=== PATIENT | female | born 1970 | race Caucasian/White ===

== ENCOUNTER 2018-11-30 08:23 | Inpatient (IN) | payer BC, OTHER ==
[2018-11-29 11:23] VITALS: BMI 23.0
[2018-11-30 11:13] LABS: PH,URINE 5.5 (5.0-8.0); URINE APPEARANCE CLEAR; URINE BILIRUBIN NEGATIVE (NEGATIVE); URINE COLOR DK YELLOW; URINE GLUCOSE (UA) TRACE (NEGATIVE); URINE KETONE TRACE (NEGATIVE); URINE LEUK ESTERASE NEGATIVE (NEGATIVE); URINE NITRITE NEGATIVE (NEGATIVE); URINE PROTEIN TRACE (NEGATIVE)
[2018-11-30] MEDS ORDERED: MIDAZOLAM HCL 2 MG/2 ML SINGLE DOSE VIAL ONE (11:18)
[2018-11-30] MEDS ORDERED: PROPOFOL 20 ML ONE (11:18)
[2018-11-30] MEDS ORDERED: fentaNYL CITRATE 250 MCG/5 ML VIAL ONE (11:18)
[2018-11-30] MEDS ORDERED: ROCURONIUM BROMIDE 50 MG/5 ML SYRINGE ONE ×2 (11:18→12:53)
[2018-11-30] MEDS ORDERED: LIDOCAINE HCL/PF 2% SDV 5ML VIAL ONE (11:20)
[2018-11-30] MEDS ORDERED: ceFAZolin SODIUM 1 GM VIAL IVPB ONE (11:36)
[2018-11-30] MEDS ORDERED: ESMOLOL HCL 100,000 MCG/10 ML VIAL ONE (12:29)
[2018-11-30] MEDS ORDERED: HYDROmorphone HCl 2 MG/ML VIAL ONE (13:23)
--- NOTE | 2018-11-30 13:38 | HP ---
History & Physical Update - History History: No Change - Physical Physical: No Change - Assessment Assessment: No Change - Plan Plan: No Change
[2018-11-30] MEDS ORDERED: morphine SULFATE/PF 30 MG/30 ML *PCA* DISP.SYRIN PCA SCH (13:45)
[2018-11-30] MEDS ORDERED: DEXAMETHASONE SOD PHOSPHATE 4 MG/1 ML VIAL ONE (14:29)
[2018-11-30] MEDS ORDERED: GLYCOPYRROLATE 0.2 MG/1 ML VIAL ONE (14:42)
[2018-11-30] MEDS ORDERED: NEOSTIGMINE METHYLSULFATE 0.5 MG/ML - 10 ML MDV ONE (14:42)
[2018-11-30] MEDS ORDERED: ONDANSETRON 4 MG/2 ML VIAL IVPUSH PRN (15:25)
[2018-11-30] MEDS ORDERED: HYDROmorphone *PCA* 10MG/50ML DISP.SYRIN PCA SCH (16:00)
--- NOTE | 2018-11-30 16:01 | OP ---
Operative Note - Note: Operative Date: 11/30/18 Pre-Operative Diagnosis: chest wall deformity after bilateral mastectomy for breast cancer Operation: Bilateral breast reconstruction with alloderm and expanders Post-Operative Diagnosis: Same as Pre-op Surgeon: Doni Camilo Drivability Technician: Donna Dhaliwal Anesthesiologist/PUBLIC SPEAKING COACH: Paxton Casillas Anesthesia: General Estimated Blood Loss (mls): 100 Drains & Tubes with Location: ANDRE x2 right chest wall. JPx2 left chest wall Fluid Volume Replaced (mls): 2,000 Operative Report Dictated: Yes
--- NOTE | 2018-11-30 16:02 | SURG ---
Surgery Converter Operator Note Converter Operator: Donna Dhaliwal PA-C Date of Service: 11/30/18 Diagnosis: chest wall deformity s/p bilateral mastectomy for breast cancer. Procedure: Bilateral breast reconstruction s/p mastectomy with tissue expanders and alloderm I was present for the entirety of the operative procedure. For further detail, please refer to operative report. Visit type - Case Type Case Type: Scheduled - Emergency Emergency Visit: No - New patient This patient is new to me today: Yes Date on this admission: 11/30/18
--- NOTE | 2018-11-30 16:04 | OP ---
Operative Note - Note: Operative Date: 11/30/18 Pre-Operative Diagnosis: Right Breast Cancer Operation: Bilateral Immediate Breast Reconstruction, Bilateral Insertion of Tissue Expanders, Bilateral Insertion of Perforated Alloderm Sheets Implants: Dayhoit CPX-4 Medium Height Tissue Expanders 450cc Post-Operative Diagnosis: Same as Pre-op Surgeon: Doni Camilo Seismic Prospecting Supervisor: Donna Dhaliwal Anesthesia: General Operative Report Dictated: Yes
[2018-11-30] MEDS ORDERED: SODIUM CHLORIDE 1,000 ML IV SCH (16:15)
[2018-11-30] MEDS ORDERED: ACETAMINOPHEN INJECTION 100 ML IVPB ONE (17:33)
[2018-11-30] MEDS: ACETAMINOPHEN 500 MG TABLET (FP) PO PRN (17:37)
[2018-11-30] MEDS ORDERED: ceFAZolin SODIUM 1 GM VIAL ONE (17:39)
[2018-11-30] MEDS: CEFAZOLIN 1 GM/D5W 1 GM/50 ML BAG IVPB SCH ×3 (17:51→18:00)
--- NOTE | 2018-11-30 20:32 | OP ---
DATE OF OPERATION: 11/30/2018 PREOPERATIVE DIAGNOSIS: Right breast cancer. POSTOPERATIVE DIAGNOSIS: Right breast cancer. PROCEDURE: Bilateral mastectomy and right sentinel node biopsy. SURGEON: Lorelei Ruffin MD COOK APPRENTICE: Doni Camilo MD ANESTHESIA: General. ESTIMATED BLOOD LOSS: 200 mL. DRAINS: None. COMPLICATIONS: None. This is a sterile procedure. INDICATION FOR PROCEDURE: The patient presented with an abnormal screening mammogram and ultrasound that noted multiple nodules in the upper outer right breast as well as 1 close to the nipple in the 11 o'clock areolar border. I did a needle biopsy of 2 of these, and this came back as invasive carcinoma. Clinically, she also had bloody nipple discharge from the right breast. My recommendation was mastectomy given these are 2 at least multifocal with possibly involvement of the nipple given the bloody nipple discharge. Therefore, she opted for a left prophylactic mastectomy, and she met with plastic surgery to discuss reconstructive options. PROCEDURE IN DETAIL: Patient was brought to [facility] in [place]. Taken down to nuclear medicine where I injected technetium sulfur colloid as an intradermal injection in the right breast 11 o'clock areolar border. She was then brought up to the operating room, and after induction of general anesthesia and IV antibiotics, 5 mL of Methylene blue dye diluted with 5 mL of injectable saline, I injected 5 mL of this in the right subareolar plexus, and the breast was massaged for 5 minutes. Both breast and right axilla then prepped and draped in the usual sterile fashion. Ellipse of skin was taken to include the nipple areolar complex, and superior, inferior, medial, lateral flaps were raised, and then I 1st got into the right axilla to the claviopectoral fascia. Identified 3 sentinel lymph nodes. The 1st one was blue and hot. The 2nd one was hot but not blue. The 3rd one, which is actually more on the tail of the breast, was the hottest lymph node and blue. These were sent to Pathology for permanent section. There was no other blue dye radioactivity, pathologic feeling lymph node in the right axilla. Therefore, next, a right mastectomy was completed. Again, once superior, inferior, medial, lateral flaps were raised, the breast was reflected off the pectoralis muscle and tagged with a stitch at the lateral edge and sent for permanent section to pathology. Next, gown, gloves, and instruments were changed, and the left mastectomy was performed, and the incisions were made to include the nipple areolar complex, and superior, inferior, medial, lateral flaps were raised, and the breast was reflected off the pectoralis muscle. This was tagged with a stitch at the lateral edge and sent as a left mastectomy with stitch at lateral edge. Hemostasis was assured with electrocautery. The patient was then left with Dr. Camilo to finish the reconstructive part of the procedure. LORELEI RUFFIN M.D. [id number]
[2018-11-30] MEDS: LACTATED RINGERS SOLUTION 1,000 ML IV SCH (21:10)
--- NOTE | 2018-11-30 21:20 | OP ---
DATE OF OPERATION: 11/30/2018 AGE: 47. SEX: Female. PREOPERATIVE DIAGNOSIS: Right breast cancer. POSTOPERATIVE DIAGNOSIS: Right breast cancer. PROCEDURE PERFORMED: Bilateral immediate breast reconstruction, bilateral insertion of tissue expanders, and bilateral insertion of perforated AlloDerm sheets. SURGEON: Doni Joel MD MAP CLERK: SHERRIE Caballero ANESTHESIA: General. DESCRIPTION OF PROCEDURE: The patient is on the operating table at the completion of bilateral modified radial mastectomies by Dr. Reaves. This was performed in addition to a sentinel node biopsy in the right axilla. The right breast was addressed first. The pectoralis major muscle was identified, and the subpectoral plane was dissected and developed. The inferomedial attachments of the pectoralis major muscle were divided, and the dissection was continued superiorly to the level of the second rib. The tissue french folding machine operator selected was a [place] CPX 4 medium-height, 450-mL tissue french folding machine operator. Prior to insertion, a sheet of medium-thickness perforated AlloDerm was brought onto the field and soaked in normal saline. The AlloDerm was sutured to the inferior edge of the pectoralis major muscle using a 2-0 Vicryl suture in interrupted horizontal mattress fashion, burying the knots under the muscle. The tissue french folding machine operator was brought onto the field, and all air was removed using the provided butterfly needle. Next, 40 mL of saline were instilled into the tissue french folding machine operator to facilitate removing all of the air. The french folding machine operator was then inserted without difficulty and aligned properly. The inferior-most suture tab was used to fix its position using a single Vicryl suture. The AlloDerm was then reflected over the lower pole of the implant and sutured using 2-0 Vicryl suture in interrupted buried fashion at the level of the inframammary fold. Two number 15-Citizen [place] Joel-Hart drains were inserted through separate stab incisions in the anterior axillary line, one directed towards the axilla and one directed inferiorly. Closure was then begun. Closure was performed in layered fashion. Deep tissues were closed with number 3-0 Biosyn suture in interrupted buried fashion, and deep dermal layer of 4-0 V-Loc 90 was used for skin in continuous fashion. A similar procedure was performed on the left breast, and the same size and shape implant was used. The wounds were then secured with Steri-Strips, and prior to placing a dressing, the supplied port finder was used to locate the port superiorly, and additional saline was instilled into the french folding machine operator. A total amount of saline at the conclusion of the procedure was 200 mL in each tissue french folding machine operator. Sterile dressings were then applied and secured with a surgical bra. The patient was then awoken from anesthesia without difficulty and taken from the operating room to the recovery room in satisfactory condition, having tolerated the procedure well. DONI JOEL M.D. /[id number]
[2018-12-01] MEDS: LACTATED RINGERS SOLUTION 1,000 ML IV SCH (04:03)
[2018-12-01] MEDS: CEFAZOLIN 1 GM/D5W 1 GM/50 ML BAG IVPB SCH ×2 (04:26→09:39)
[2018-12-01] MEDS ORDERED: metFORMIN HCL 500 MG TABLET (FP) PO SCH (07:00)
[2018-12-01] MEDS: INSULIN SLIDING SCALE (NOVOLOG) 1 VIAL SQ SCH ×2 (07:03→11:34)
--- NOTE | 2018-12-01 09:26 | PN ---
Progress Note, Physician Chief Complaint: s/p bilateral mastectomy with reconstruction under general anesthesia History of Present Illness: post op day one, ROUSTABOUT SUPERVISOR for post op analgesia - Current Medication List Current Medications: Active Medications Acetaminophen (Tylenol -) 1,000 mg PO Q6H PRN PRN Reason: MILD PAIN Last Admin: 11/30/18 17:37 Dose: 1,000 mg Atorvastatin Calcium (Lipitor -) 10 mg PO HS SELVIN Hydromorphone HCl (Hydromorphone 10 Mg/50 Ml-Ns) 10 mg ROUSTABOUT SUPERVISOR ROUSTABOUT SUPERVISOR [facility]; Protocol Stop: 12/07/18 15:51 Last Admin: 11/30/18 16:00 Dose: 10 mg Lactated Ringer's (Lactated Ringers Solution) 1,000 mls @ 125 mls/hr IV ASDIR SELVIN Last Admin: 12/01/18 04:03 Dose: 125 mls/hr Cefazolin Sodium (Ancef 1 Gm Premixed Ivpb -) 1 gm in 50 mls @ 100 mls/hr IVPB Q8H-IV SELVIN Stop: 12/01/18 10:29 Last Admin: 12/01/18 04:26 Dose: 100 mls/hr Insulin Aspart (Novolog Vial Sliding Scale -) 1 vial SQ TIDAC [facility]; Protocol Last Admin: 12/01/18 07:03 Dose: Not Given Metformin HCl (Glucophage -) 1,000 mg PO BIDAC [facility] - Objective Vital Signs: Vital Signs Temperature 98.6 F 12/01/18 06:21 Pulse Rate 77 12/01/18 06:21 Respiratory Rate 18 12/01/18 06:21 Blood Pressure 116/69 12/01/18 06:21 O2 Sat by Pulse Oximetry (%) 99 11/30/18 22:00 Constitutional: Yes: Well Nourished, Mild Distress Cardiovascular: Yes: WNL Respiratory: Yes: WNL Gastrointestinal: Yes: WNL Assessment/Plan Complaining of "11/10" pain, but not using ROUSTABOUT SUPERVISOR effectively. Patient is tolerating a diet. No anesthetic complications, WIll order oxycodone and dc ROUSTABOUT SUPERVISOR.
[2018-12-01] MEDS ORDERED: oxyCODONE HCL 5 MG TABLET PO PRN ×2 (09:27)
[2018-12-01] MEDS: ACETAMINOPHEN 500 MG TABLET (FP) PO PRN (10:00)
--- NOTE | 2018-12-01 12:02 | PN ---
Progress Note (short form) - Note Progress Note: pod 1 doing well. afebrile. pain control adequate Bl mastectectomy flaps viable, JPs in place and functioning ambulate d/c home today
[2018-12-01 12:22] VITALS: BP 147/77; PULSE 86; TEMP 99.1
[2018-12-01] MEDS ORDERED: ATORVASTATIN CA 10 MG TABLET (FP) PO SCH (22:00)
--- NOTE | 2018-12-08 13:58 | PATH ---
Surgical Pathology Report Patient Name: ALBERTO GREENE [facility]. Rec. #: [id number] /Age/Gender: 1970 (Age: 47) / F Account: [id number] Location: [address] [place] [address] Taken: 11/30/2018 Received: 11/30/2018 Reported: 12/08/2018 Physicians: Lorelei Reaves M.D. Specimen(s) Received A: RIGHT AXILLARY SENTINEL LYMPH NODE #1 B: RIGHT AXILLARY SENTINEL LYMPH NODE #2 C: RIGHT AXILLARY SENTINEL LYMPH NODE #3 D: RIGHT MASTECTOMY STITCH ERIKA LATERAL EDGE E: NEW POSTERIOR MARGIN UNDER TAIL OF BREAST CANCER F: LEFT MASTECTOMY STITCH MAXWELL LATERAL EDGE Clinical History Right breast cancer Final Diagnosis A. RIGHT AXILLARY SENTINEL LYMPH NODE #1, HOT AND BLUE, EXCISION: ONE LYMPH NODE, NEGATIVE FOR METASTATIC CARCINOMA (0/1). B. RIGHT AXILLARY SENTINEL LYMPH NODE #2, HOT NOT BLUE, EXCISION: ONE LYMPH NODE, NEGATIVE FOR METASTATIC CARCINOMA (0/1). C. RIGHT AXILLARY SENTINEL LYMPH NODE #3, HOT AND BLUE, EXCISION: ONE LYMPH NODE, NEGATIVE FOR METASTATIC CARCINOMA (0/1). 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 D. RIGHT BREAST, MASTECTOMY: PAPILLARY CARCINOMA, NONINVASIVE. EXTENSIVE DUCTAL CARCINOMA IN SITU (DCIS) PRESENT, INTERMEDIATE NUCLEAR GRADE, WITH CRIBRIFORM, SOLID, AND MICROPAPILLARY PATTERNS, AND ASSOCIATED NECROSIS AND CALCIFICATIONS. MARGINS ARE NEGATIVE FOR CARCINOMA. NONINVASIVE PAPILLARY CARCINOMA (UNDER TAIL OF BREAST) IS AT LESS THAN 1 MM FROM THE POSTERIOR MARGIN. ALSO SEE SPECIMEN E FOR NEW POSTERIOR MARGIN. REACTIVE CHANGES AT PRIOR BIOPSY SITE IDENTIFIED. PATHOLOGIC STAGE (pTNM, AJCC 8th Edition): pTis pN(sn)0 SEE SURGICAL PATHOLOGY CANCER CASE SUMMARY BELOW. Comment: Immunohistochemical stains performed at [place], [place] ([id number], block D2, D5, and D12) and at [facility] (block D1, D7, D9, D11, and D13), interpreted at [facility] show the following results: Intact myoepithelial cell layer at the periphery of the papillary carcinoma and DCIS are highlighted by smooth muscle myosin heavy chain, p63 (block D1, D7, D9, D11, and D13), or p40 (block D2, D5, and D12). No evidence of invasive carcinoma. This case was discussed with Dr. Reaves on December 06, 2018. E. NEW POSTERIOR MARGIN UNDER TAIL OF BREAST CANCER, EXCISION: PORTION OF BENIGN FIBROADIPOSE TISSUE AND SKELETAL MUSCLE, NEGATIVE FOR MALIGNANCY. F. LEFT MASTECTOMY: BENIGN BREAST TISSUE WITH INTRADUCTAL PAPILLOMA, AND PROLIFERATIVE FIBROCYSTIC CHANGES INCLUDING USUAL DUCTAL HYPERPLASIA (UDH), PAPILLARY AND CYSTIC APOCRINE METAPLASIA, DILATED DUCTS, AND STROMAL FIBROSIS. Comments DCIS of the Breast: Surgical Pathology Cancer Case Summary (Based on AJCC TNM 8 th edition) Procedure _x_ Total mastectomy (including nipple-sparing and skin-sparing mastectomy) Specimen Laterality _x_ Right Size (Extent) of DCIS Estimated size (extent) of DCIS (greatest dimension using gross and microscopic evaluation): at least (millimeters) 90 mm Number of blocks with DCIS: 11 Number of blocks examined: 20 Histologic Type _x_ Ductal carcinoma in situ Architectural Patterns _x_ Cribriform _x_ Micropapillary _x_ Papillary _x_ Solid Nuclear Grade _x_ Grade II (intermediate) Necrosis _x_ Present, focal (small foci or single cell necrosis) Margins _x_ Uninvolved by DCIS Distance from closest margin (millimeters): Papillary carcinoma (under tail of breast) is at less than 1 mm from the posterior margin. New posterior margin (specimen E) is negative for carcinoma. Regional Lymph Nodes _x_ Uninvolved by tumor cells Number of Lymph Nodes Examined: 3 Number of [place] Nodes Examined: 3 Pathologic Stage Classification (pTNM, AJCC 8th Edition) Primary Tumor (pT) _x_ pTis (DCIS): Ductal carcinoma in situ Regional Lymph Nodes (pN) _x_ pN 0 Microcalcifications _x_ Present in DCIS _x_ Present in nonneoplastic tissue Biomarker Studies Results of ER and UT studies performed on this specimen (block#D1) at [facility] are as follows: ER (clone [id number] mouse monoclonal antibody by Leica): >95% nuclear staining with strong and moderate intensity (positive). UT (clone16 mouse monoclonal antibody by Leica): 90% nuclear staining with strong and moderate intensity (positive). Positive and negative controls (internal if applicable) show appropriate results. Formalin fixation and cold ischemic times are within current ASCO/CAP recommendations for ER, UT and Her2 testing. Electronically Signed Mile Peterson M.D. Gross Description A. Received in formalin, labeled "right axillary sentinel lymph node #1, hot and blue" is a lymph node measuring 1.5 cm in greatest dimension. The specimen is submitted in toto in one cassette after bisected. B. Received in formalin, labeled "right axillary sentinel lymph node #2, hot not blue" is a lymph node measuring 0.4 cm in greatest dimension with attached fatty tissue. The specimen is submitted in toto in one cassette. C. Received in formalin, labeled "right axillary sentinel lymph node #3, hot and blue" is a lymph node measuring 1.1 cm in greatest dimension. The lymph node is bisected. The specimen is entirely something 2 cassettes. 1: lymph node, bisected; 2: The rest of the fibroadipose tissue. D. Received in formalin, labeled "right breast, stitch maxwell lateral edge" is a 22 x 18.0 x 4 cm mastectomy specimen with skin and nipple. The skin measures 22 x 10 cm. There is a stitch marking the lateral aspect, per the surgeon. The specimen is inked as follows: superior: yellow; inferior green; lateral blue; deep black. The specimen is serially sectioned from lateral to medial. Sectioning reveals dense, white, focally firm fibrous tissue. One circumscribed, focally capsulated mass (under tail of breast) measuring 1.3 cm in greatest dimension located at 9-10:00, approximately 10 cm to the nipple. The mass appears to near the posterior margin. A second circumscribed, focally capsulated mass located 10 to 11:00, 1 cm from the nipple measuring 2.3 cm in greatest dimension is identified. A 3.5 cm in greatest dimension. area at 9:00, involving upper and lower quadrants, showing gritty change of the fibrotic parenchyma is noted. Side Splitter sections are submitted in 20 cassettes as follows: 1-3: full face section of mass (10cm from the nipple), deep margin in #2 and #3. 4: nipple and skin. 5. Full face of second mass (1cm from nipple); 6 to 8: Full face of second mass (1cm from nipple) with adjacent tissue. 9: Skin overlying the second mass; 10. deep margin from the second mass; 11 to 15: The clot involving the upper and outer lower margin gritty area. 16: lateral margin; 17: superior margin; 18: Inferior margin; 19: upper inner quadrant. 20: Lower inner quadrant. Time to formalin fixation: less than 5 minutes Formalin fixation time: Approximately 6 hours E. Received in formalin labeled "new posterior margin under tail of breast cancer", is a 1.8 x 1.6 x 0.6 cm portion of fibroadipose tissue. No orientation is provided. The surface is inked yellow. The specimen is serially and entirely submitted in 2 cassettes. F. Received in formalin, labeled "left mastectomy, stitch maxwell lateral edge" is a 19.0 x 18.0 x 2.1 cm mastectomy specimen with skin and nipple. The skin measures 18 x 8 cm. There is a stitch marking the lateral aspect, per the surgeon. The specimen is inked as follows: superior: green; inferior yellow; deep black. The specimen is serially sectioned from lateral to medial. Sectioning reveals dense, white, firm fibrous tissue. No mass or nodule is present. Side Splitter sections are submitted in 7cassettes as follows:1. Nipple and skin; 2: Upper outer quadrant; 3 to 4: Lower outer quadrant; 5 to 6: Upper-inner quadrant; 7: Lower inner quadrant. THEE/12/01/2018 emily/12/01/2018
== END 2018-12-01 13:39 | disposition home or self-care (01) | DRG 581 ==
LOC: JSAMEDAYSX 08:23 → EDSTATUS 09:30 → J6S 20:11
PROVIDERS: ADMIT Surgery; ATTEND Surgery
PROC: 0HTV0ZZ Resection of Bilateral Breast, Open Approach (ICD-10-PCS; principal; 2018-11-30 10:00)
PROC: 07B50ZX Excision of Right Axillary Lymphatic, Open Approach, Diagnostic (ICD-10-PCS; 2018-11-30 10:00)
PROC: 0HHV0NZ Insertion of Tissue Expander into Bilateral Breast, Open Approach (ICD-10-PCS; 2018-11-30 10:00)
DX: C50.411 Malignant neoplasm of upper-outer quadrant of right female breast (principal); M95.4 Acquired deformity of chest and rib
CPT/HCPCS: 71046-TC-FY; 78195-TC; 81003; 82962; 84703; 88307-TC; 94010; 94760; A9541; J0131

== ENCOUNTER 2019-03-24 10:55 | Day surgery (SDC) | payer BC, OTHER ==
[2019-03-23 12:39] VITALS: BMI 23.0
[2019-03-24] MEDS ORDERED: MIDAZOLAM HCL 2 MG/2 ML SINGLE DOSE VIAL ONE ×2 (12:47→14:34)
[2019-03-24] MEDS ORDERED: PROPOFOL 20 ML ONE (12:47)
[2019-03-24] MEDS ORDERED: ROCURONIUM BROMIDE 50 MG/5 ML SYRINGE ONE (12:47)
[2019-03-24] MEDS ORDERED: fentaNYL CITRATE 250 MCG/5 ML VIAL ONE ×2 (12:47→14:09)
[2019-03-24] MEDS ORDERED: ceFAZolin SODIUM 1 GM VIAL ONE (12:48)
[2019-03-24] MEDS ORDERED: LIDOCAINE HCL/PF 2% SDV 5ML VIAL ONE (12:48)
[2019-03-24] MEDS ORDERED: DEXAMETHASONE SOD PHOSPHATE 4 MG/1 ML VIAL ONE (12:48)
[2019-03-24] MEDS ORDERED: ceFAZolin SODIUM 1 GM VIAL IVPB ONE (14:25)
[2019-03-24] MEDS ORDERED: NEOSTIGMINE METHYLSULFATE 0.5 MG/ML - 10 ML MDV ONE (15:09)
[2019-03-24] MEDS ORDERED: GLYCOPYRROLATE 0.2 MG/1 ML VIAL ONE (15:09)
[2019-03-24] MEDS ORDERED: ONDANSETRON 4 MG/2 ML VIAL IVPUSH PRN (15:20)
[2019-03-24] MEDS ORDERED: ACETAMINOPHEN 1000 MG/100 ML VIAL (NON FORMULARY) IVPB ONE (15:20)
[2019-03-24] MEDS ORDERED: oxyCODONE HCL 5 MG TABLET PO PRN (15:20)
[2019-03-24] MEDS ORDERED: LACTATED RINGERS SOLUTION 1,000 ML IV SCH (15:30)
[2019-03-24] MEDS ORDERED: ACETAMINOPHEN INJECTION 100 ML IVPB ONE (15:34)
--- NOTE | 2019-03-24 15:47 | OP ---
Operative Note - Note: Operative Date: 03/24/19 Pre-Operative Diagnosis: History of Breast Cancer Operation: Bilateral Staged Breast Reconstructions, Remove Tissue Expanders, Insert Silicone Prostheses. Implants: [place] MemoryGel Smooth Round Moderate Plus Profile Gel 450cc Surgeon: Doni Camilo Anesthesia: General Specimens Removed: Tissue Expanders x 2 Operative Report Dictated: Yes
--- NOTE | 2019-03-24 16:22 | OP ---
DATE OF OPERATION: 03/24/2019 PREOPERATIVE DIAGNOSIS: History of breast cancer. POSTOPERATIVE DIAGNOSIS: History of breast cancer. PROCEDURE PERFORMED: Bilateral staged breast reconstructions with removal of tissue expanders and insertion of silicone prostheses. SURGEON: Doni Joel MD ANESTHESIA: General. BRIEF HISTORY: The patient is status post bilateral total mastectomies, and tissue expanders were placed at the time of her mastectomies. The expanders are now fully inflated, and the patient is now for exchange to permanent prostheses. DESCRIPTION OF PROCEDURE: The patient was on the operating table in supine position. General anesthesia was administered by the anesthesiologist. The area of the chest was prepped in the usual sterile fashion. Markings were made with the patient in standing position prior to surgery, and these markings were now used as a guide for surgery. The right breast was addressed first. An inframammary incision was made approximately 5 cm in length. The dissection carried down through subcutaneous tissues until the tissue carbon blocks press operator was exposed. The tissue carbon blocks press operator was punctured with a No. 10 scalpel blade and emptied. The carbon blocks press operator was then removed without difficulty. The pocket was then irrigated and felt to be of adequate size and dimensions. The new implant selected was a [place] Smooth Round Moderate Plus Profile gel-filled implant 450 mL in size. The pocket was irrigated with a solution of dilute Betadine, and this implant was inserted with the assistance of a Servin Funnel. A similar procedure was performed in the left breast, and the same size and style implant was used. The wounds were then closed in layered fashion. Deep tissues were closed with No. 3-0 and 4-0 Biosyn suture in interrupted buried fashion, and a deep dermal layer of 4-0 V-Loc 90 was used for skin. Several 5-0 nylon sutures were placed in similar fashion to further secure the skin closure in lieu of using Steri-Strips. Sterile dressings were then applied consisting of Kerlix gauze and secured with a surgical bra. The patient was then awoken from anesthesia without difficulty and taken from the operating room to the recovery room in satisfactory condition having tolerated the procedure well. DONI JOEL M.D. /[id number]
[2019-03-24] MEDS ORDERED: oxyCODONE HCL 5 MG TABLET ONE (17:52)
[2019-03-24] MEDS ORDERED: oxyCODONE HCL 5 MG TABLET PO ONE (17:55)
[2019-03-24 18:23] VITALS: TEMP 98.2
[2019-03-24 18:55] VITALS: BP 103/70; PULSE 93
== END 2019-03-24 18:50 | disposition home or self-care (01) ==
LOC: JASU-SURG 10:55
PROVIDERS: ATTEND Plastic Surgery
PROC: 0HRV0JZ Replacement of Bilateral Breast with Synthetic Substitute, Open Approach (ICD-10-PCS; 2019-03-24)
PROC: 0HPU0NZ Removal of Tissue Expander from Left Breast, Open Approach (ICD-10-PCS; principal; 2019-03-24 13:00)
PROC: 0HPT0NZ Removal of Tissue Expander from Right Breast, Open Approach (ICD-10-PCS; 2019-03-24 13:00)
DX: Z85.3 Personal history of malignant neoplasm of breast (principal); Z90.13 Acquired absence of bilateral breasts and nipples
CPT/HCPCS: 82962; 94760; J0131